=== PATIENT | female | born 1980 | race Caucasian/White ===

== ENCOUNTER 2016-11-28 16:23 | Emergency (ER) | payer OTHER ==
[2016-11-28 17:08] VITALS: BMI 24.7
[2016-11-28 17:21] VITALS: RESP 18; TEMP 97.9; O2SAT 99
[2016-11-28 17:53] LABS: VENOUS BLOOD GAS BASE EXCESS -1.5 mmol/L (0.0-2.0); VENOUS BLOOD GAS PCO2 44 mmHg (40-60); VENOUS BLOOD PH 7.35 (7.32-7.43)
--- NOTE | 2016-11-28 18:11 | ED PDOC ---
Lower Extremity Pain/Injury Time Seen by Provider: 11/28/16 16:48 Chief Complaint (Nursing): Lower Extremity Problem/Injury Chief Complaint (Provider): Bilateral leg pain History Per: Patient History/Exam Limitations: no limitations Onset/Duration Of Symptoms: Days (7x) Current Symptoms Are (Timing): Still Present Severity: Moderate Additional Complaint(s): 36 year old female patient with a pertinent medical history of elevated uric acid presents to the ED with complaints of bilateral knee and foot pain that started 2-3x days ago. She reports that 1x week ago, she had right knee and right foot pain and over the next 4x days had a fever tmax 101. 2-3x days ago, she felt feverish (tmax temp was 99), left foot and left knee pain (atraumatic) , although her right leg improved. 1x year ago she was evaluated by her marketing pr intern Harsh Blas MD who diagnosed her with having an elevated uric acid level. He prescribed her allopurinol, which brought her relief. For the past 1x weeks, she has been taking tylenol for the pain. She denies taking any tylenol and antipyretics today. PMD: Echo Jung PA-C Clerical Adviser: Harsh Blas MD Past Medical History Reviewed: Historical Data, Nursing Documentation, Vital Signs Vital Signs: Last Vital Signs Temp 97.9 F 11/28/16 17:17 Pulse 110 H 11/28/16 17:17 Resp 18 11/28/16 17:17 BP 132/80 11/28/16 17:17 Pulse Ox 99 11/28/16 17:17 - Medical History PMH: Anxiety - Surgical History Other surgeries: oral surgery (wisdom teeth) - Family History Family History: States: No Known Family Hx - Social History Alcohol: None Drugs: Denies - Immunization History Hx Tetanus Toxoid Vaccination: (UTD as per patient) - Home Medications Home Medications: Ambulatory Orders Medication Instructions Recorded Amoxicillin/Clavulanate Pota 1 tab PO BID #14 tab 02/12/15 [Augmentin 875 mg-125 mg] Furosemide [Lasix] 20 mg PO DAILY 02/12/15 Sulfamethoxazole/Trimethopri 1 tab PO BID #14 tab 02/12/15 [Bactrim Ds 800 mg-160 mg] clonazePAM [Klonopin] 1 mg PO TID 02/12/15 Acetaminophen with Codeine 1 - 2 each PO Q4 PRN #12 tablet 11/28/16 [Tylenol with Codeine #3 Tablet] Nitrofurantoin Macrocrystals 100 mg PO BID #14 cap 11/28/16 [Macrobid] - Allergies Allergies/Adverse Reactions: Allergies Allergy/AdvReac Type Severity Reaction Status Date / Time No Known Allergies Allergy Verified 02/11/15 22:06 Review of Systems ROS Statement: Except As Marked, All Systems Reviewed And Found Negative Constitutional: Negative for: Fever Musculoskeletal: Positive for: Leg Pain (left leg, swelling) Physical Exam - Reviewed Nursing Documentation Reviewed: Yes Vital Signs Reviewed: Yes - Physical Exam Appears: Positive for: Well, Non-toxic, No Acute Distress Head Exam: Positive for: ATRAUMATIC, NORMOCEPHALIC Skin: Positive for: Normal Color, Warm, Dry Pulses-Dorsalis Pedis (L): 2+ Pulses-Dorsalis Pedis (R): 2+ Extremity: Positive for: Normal ROM, Capillary Refill (minimal bilateral capillary refill), Swelling (left foot: moderate swelling dorsal surface, Left knee: mild erythema, no tenderness, full ROM). Negative for: Tenderness, Other (Right leg: no swelling, no tenderness, no erythema) Neurologic/Psych: Positive for: Alert, Oriented (3x) - Laboratory Results Result Diagrams: 11/28/16 17:45 11/28/16 17:45 Urine POC: Positive - ECG O2 Sat by Pulse Oximetry: 99 (RA) Pulse Ox Interpretation: Normal - Progress ED Course And Treament: Pt. evaluated by Dr. Ndiaye in ED and states that this is likely gout. Pt. can be prescribed Tylenol #3 and Macrobid. Pt. informed that they will contacted if Lyme Titers are positive. Duplex b/l lower extremities: negative Knee and foot x-ray: no fx or bony abnormality Medical Decision Making Medical Decision Makin:48 Initial impression: 36 year old female with bilateral leg pain, left leg swelling. Initial plan: * XRay left knee 3 views * VBG shock panel * B-type natriuretic peptide * CMP * udip * CBC * erythrocyte sedimentation rate * lyme disease AB(IGG,M)IB * blood culture * reevaluation Scribe Attestation: Documented by Taylor Camejo, acting as a scribe for Leroy Alonzo Provider Scribe Attestation: All medical record entries made by the Scribe were at my direction and personally dictated by me. I have reviewed the chart and agree that the record accurately reflects my personal performance of the history, physical exam, medical decision making, and the department course for this patient. I have also personally directed, reviewed, and agree with the discharge instructions and disposition. Disposition - Clinical Impression Clinical Impression: Arthralgia - Patient ED Disposition Is Patient to be Admitted: No - Disposition Referrals: [facility] [Outside] Disposition: Routine/Home Disposition Time: 20:49 Condition: STABLE Prescriptions: Nitrofurantoin Macrocrystals [Macrobid] 100 mg PO BID #14 cap Acetaminophen with Codeine [Tylenol with Codeine #3 Tablet] 1 - 2 each PO Q4 PRN #12 tablet PRN Reason: pain Instructions: Gout (ED), Urinary Tract Infection in (ED)
[2016-11-28 18:36] LABS: BASO # 0.1 K/uL (0.0-0.2); BASO % 0.3 % (0.0-2.0); EOS # 0.3 K/uL (0.0-0.7); EOS % 1.8 % (0.0-4.0); HEMATOCRIT 39.6 % (34.0-47.0); LYMPH # 1.6 K/uL (1.0-4.3); LYMPH % 9.1 % (20.0-40.0); MEAN CELL VOLUME 90.7 fl (81.0-99.0); MEAN CORPUSCULAR HEMOGLOBIN 30.1 pg (27.0-31.0); MEAN CORPUSCULAR HGB CONC 33.2 g/dL (33.0-37.0); MEAN PLATELET VOLUME 8.6 fl (7.2-11.7); MONO # 1.2 K/uL (0.0-0.8); NEUT # 14.1 K/uL (1.8-7.0); NEUT % 81.8 % (50.0-75.0); NRBC % 0.1 % (0.0-0.0); PLATELET COUNT 539 K/uL (130-400); RED CELL DISTRIBUTION WIDTH 12.7 % (11.5-14.5); WHITE BLOOD COUNT 17.3 K/uL (4.8-10.8)
[2016-11-28 18:56] LABS: ALKALINE PHOSPHATASE 94 U/L (38-126); ALT/SGPT 36 U/L (9-52); AST/SGOT 32 U/L (14-36); BILIRUBIN,TOTAL 0.7 mg/dl (0.2-1.3); BLOOD UREA NITROGEN 8 mg/dl (7-17); CALCIUM 10.4 mg/dL (8.4-10.2); CARBON DIOXIDE 22 mmol/L (22-30); CHLORIDE 98 mmol/L (98-107); GFR AFRICAN-AMERICAN > 60; GLUCOSE,RANDOM 85 mg/dL (65-105); POTASSIUM 3.4 MMOL/L (3.6-5.0); RBC URINE 2 /hpf (0-3); SODIUM 134 mmol/l (132-148); TOTAL PROTEIN 9.6 G/DL (6.3-8.2); URINE BACTERIA MANY (<OCC); URINE BILIRUBIN NEGATIVE (NEGATIVE); URINE BLOOD NEGATIVE (NEGATIVE); URINE COLOR YELLOW (YELLOW); URINE GLUCOSE (UA) NEG (Normal); URINE KETONE TRACE mg/dL (NEGATIVE); URINE LEUKOCYTE ESTERASE MOD Leu/uL (Negative); URINE PROTEIN NEGATIVE (NEGATIVE); URINE UROBILINOGEN 0.2-1.0 mg/dL (0.2-1.0); WBC URINE 10 /hpf (0-5)
[2016-11-28 19:47] LABS: EOSINOPHIL 2 % (0-7); NEUTROPHIL 82 % (42-75); TOTAL CELLS COUNTED 100
--- NOTE | 2016-11-28 20:05 | US ---
EXAM: US Duplex Bilateral Lower Extremity Veins. CLINICAL HISTORY: 36 years old, female; Pain; Leg, lower; Bilateral; Additional info: Swelling TECHNIQUE: Real-time ultrasound scan of the veins of the bilateral lower extremities with color Doppler flow, spectral waveform analysis and compression. EXAM DATE/TIME: 11/28/2016 5:17 PM COMPARISON: No relevant prior studies available. FINDINGS: Normal-appearing compressibility, flow and augmentation response are seen within the common femoral, femoral and popliteal veins bilaterally. Flow is seen in the posterior tibial veins, in the calves bilaterally. IMPRESSION: No evidence of deep venous thrombosis in either leg.
[2016-11-28 20:23] LABS: ERYTHROCYTE SEDIMENTATION RATE 8 mm/hr (0-20)
[2016-11-28 21:44] VITALS: BP 104/60; PULSE 96
--- NOTE | 2016-11-29 10:42 | RAD ---
PROCEDURE: Left Knee Radiographs. HISTORY: COMPARISON: None available FINDINGS: Rotated lateral view. BONES: No acute displaced fracture. JOINTS: No dislocation. Medial compartment joint space narrowing. JOINT EFFUSION: Small suprapatellar joint effusion. OTHER FINDINGS: None. IMPRESSION: Small suprapatellar joint effusion. No acute displaced fracture or dislocation identified. If symptoms persist, or if there is continued clinical concern, x-ray follow-up in 7-10 days should be considered. Degenerative changes.
--- NOTE | 2016-11-29 10:44 | RAD ---
PROCEDURE: Left Foot Radiographs. HISTORY: pain COMPARISON: None available. FINDINGS: BONES: On the oblique view there is mild cortical irregularity about the 4th metatarsal. The remainder of the visualized osseous structures appear unremarkable. JOINTS: No dislocation. SOFT TISSUES: Soft tissue swelling. No evidence of radiopaque foreign body. OTHER FINDINGS: None. IMPRESSION: On the oblique view, there is mild cortical irregularity about the 4th metatarsal. Correlate with physical exam in order to exclude point tenderness and possibility of acute fracture. Study has been marked for PA review.
[2016-11-30 14:55] LABS: 18 KD (IGG) BAND Nonreactive (()); 23 KD (IGG) BAND Nonreactive (()); 23 KD (IGM) BAND Reactive (()); 28 KD (IGG) BAND Nonreactive (()); 30 KD (IGG) BAND Nonreactive (()); 39 KD (IGG) BAND Nonreactive (()); 39 KD (IGM) BAND Reactive (()); 41 KD (IGG) BAND Reactive (()); 41 KD (IGM) BAND Nonreactive (()); 45 KD (IGG) BAND Nonreactive (()); 58 KD (IGG) BAND Nonreactive (()); 66 KD (IGG) BAND Nonreactive (()); 93 KD (IGG) BAND Nonreactive (()); LYME DISEASE INTERP (IGG) Negative (Negative)
== END 2016-11-28 21:46 | disposition home or self-care (01) ==
LOC: H.ER 16:23
DX: M25.50 Pain in unspecified joint (principal); O23.40 Unspecified infection of urinary tract in pregnancy, unspecified trimester